=== PATIENT | male | born 1970 | race Caucasian/White ===

== ENCOUNTER 2021-11-14 11:28 | Emergency (ER) | payer SELFPAY ==
[~2021-11-14] VITALS: Ht 198.1 cm; Wt 97.5 kg
--- NOTE | 2021-11-14 11:48 | NUR ---
DR CARTER AT THE BEDSIDE
--- NOTE | 2021-11-14 11:50 | NUR ---
BIBS FOR C/O LT ARM SWELLING " I GOT BIT BY A SPIDER ". C/O LEFT ARM PAIN 04/29. WILL CONTINUE TO MONITOR THE PATIENT.
[2021-11-14] MEDS ORDERED: SULF1TAB48 PO (11:52)
[2021-11-14] MEDS ORDERED: CEPH500C2 PO (11:52)
[2021-11-14] MEDS ORDERED: SULFAMETH/TRIMETH 800/160 MG 1 UDTAB TABLET ONE (11:57)
[2021-11-14] MEDS ORDERED: CEPHALEXIN MONOHYDRATE 500 MG CAPSULE PO ONE ×2 (11:57→12:00)
[2021-11-14] MEDS ORDERED: SULFAMETH/TRIMETH 800/160 MG 1 UDTAB TABLET PO ONE (12:00)
[2021-11-14 12:02] VITALS: BP 132/68
--- NOTE | 2021-11-14 12:02 | NUR ---
Patient discharged to home in stable condition. Written and verbal after care instructions given. Patient verbalizes understanding of instruction.
[2021-11-22] MEDS ORDERED: CLIN300C12 PO (07:13)
[2021-11-22] MEDS ORDERED: LACT1CAP69 PO (07:14)
== END 2021-11-14 12:03 | disposition home or self-care (01) ==
LOC: ER 11:37
DX: L03.114 Cellulitis of left upper limb (principal); Z60.2 Problems related to living alone

== ENCOUNTER 2021-11-16 14:55 | Inpatient (IN) | payer SELFPAY ==
[~2021-11-16] VITALS: Ht 198.1 cm; Wt 73.1 kg
[~2021-11-16 14:55] MED LIST: CEPH500C2 PO; SULF1TAB48 PO
--- NOTE | 2021-11-16 14:55 | NUR ---
PT BIB SELF VISITING FROM [facility], C/O WORSENING SWELLING AND REDNESS TO RENALDO, FOLLOW-UP VISIT. PT STARTED START ATB 2 DAYS AGO WITH NO IMPROVEMENT. PT A/OX4 TOLERATING R/A WELL WITH NO SOB. CONNECTED PT TO POX AND MONITOR
[2021-11-16] MEDS ORDERED: IV NS 0.9% 1,000 ML BAG IV ONE (15:30)
[2021-11-16] MEDS ORDERED: VANCOMYCIN 1 GM in IV D5W 250 ML IV ONE (15:30)
[2021-11-16] MEDS ORDERED: PIPERACILLIN /TAZOBACTAM 3.375 G in IV D5W 50 ML IV ONE (15:30)
--- NOTE | 2021-11-16 15:55 | NUR ---
MOVE SHEET SUBMITTED AND CALLED FOR MS BED.
[2021-11-16 16:07] LABS: BASOPHILS # (AUTO) 0.1 K/uL (0.0-0.2); BASOPHILS % (AUTO) 0.3 % (0.0-2.0); EOSINOPHILS % (AUTO) 1.1 % (0.0-6.0); HEMATOCRIT 38 % (39-51); LYMPHOCYTES % (AUTO) 5.8 % (20.0-44.0); MEAN CORPUSCULAR HGB CONC 34 g/dl (31.0-36.0); MEAN CORPUSCULAR VOLUME 95 fL (80-96); MONOCYTES # (AUTO) 1.9 K/uL (0.1-1.30); NEUTROPHILS # (AUTO) 14.3 K/uL (1.8-8.9); NEUTROPHILS % (AUTO) 81.8 % (43.0-81.0); PLATELET COUNT (AUTO) 708 K/uL (150-450); RED BLOOD CELL COUNT(AUTO) 4.04 MIL/uL (4.5-6.0); WHITE BLOOD COUNT (AUTO) 17.5 K/uL (4.3-11.0)
[2021-11-16] MEDS ORDERED: PIPERACILLIN /TAZOBACTAM 3.375 G VIAL IV ONE (16:28)
[2021-11-16 16:40] LABS: ALBUMIN 2.5 g/dL (3.4-5.0); BILIRUBIN,DIRECT 0.1 mg/dL (0.0-0.2); BILIRUBIN,TOTAL 0.1 mg/dL (0.2-1.0); CALCIUM, SERUM 8.2 mg/dL (8.5-10.1); CREATININE 1.1 mg/dL (0.6-1.3); POTASSIUM 4.3 mmol/L (3.5-5.1); TOTAL PROTEIN, SERUM 7.2 g/dL (6.4-8.2)
--- NOTE | 2021-11-16 16:45 | NUR ---
GOT BED 319-1
--- NOTE | 2021-11-16 18:00 | NUR ---
RAC #20G S/L; PATENT AND INTACT
--- NOTE | 2021-11-16 18:36 | NUR ---
COVID ANTIGEN SWAB DONE AND SENT TO THE LAB
[2021-11-16] MEDS ORDERED: ACETAMINOPHEN 325 MG TABLET PO PRN (21:00)
[2021-11-16] MEDS ORDERED: MAGNESIUM HYDROXIDE 30 ML UDC PO PRN (21:00)
[2021-11-16] MEDS ORDERED: MAG HYDROX/AL HYDROX/SIMETH 30 ML UDC PO PRN (21:00)
[2021-11-16] MEDS ORDERED: ONDANSETRON HCL/PF 4 MG/2 ML VIAL IVP PRN (21:00)
[2021-11-16] MEDS ORDERED: IOHEXOL-300 100 ML VIAL IV ONE (21:23)
[2021-11-16] MEDS ORDERED: IV NS 0.9% 250 ML IV ONE (21:23)
--- NOTE | 2021-11-16 21:28 | NUR ---
PT TAKEN TO CT VIA [facility]
--- NOTE | 2021-11-16 22:12 | NUR ---
REPORT GIVEN TO DEV Garcia RN FOR TANISHA
[2021-11-16 22:25] VITALS: BP 136/83
--- NOTE | 2021-11-16 22:25 | NUR ---
MS RN ADMITTING NOTE PT TRANSPORTED BY [facility] TO [place] FROM ED AT THIS TIME. RECEIVED [id number] FROM CHARGE NURSE YNES. PT IS A/O X4. PT IS ABLE TO COMMUNICATE NEEDS. NO SOB NOTED, NO C/O PAIN AT THIS TIME. NO S/S OF ANY APPARENT DISTRESS NOTED. RESPIRATIONS EVEN AND UNLABORED, ACTIVE BOWEL SOUNDS AUSCULTATED THROUGHOUT, ABDOMEN IS NON DISTENDED. SKIN IS INTACT WITH REDNESS AND SWELLING ON THE LEFT ARM.. SKIN IS WARM TO TOUCH. CAPILLARY REFILL < 3SECS, PULSES PRESENT BILATERALLY, GOOD CIRCULATION NOTED. IV ACCESS NOTED IN RIGHT AC G# 20, INTACT, PATENT AND FLUSHING WELL. PT'S BELONGINGS ACCOUNTED FOR AND KEPT AT PT'S BEDSIDE PER PT REQUEST. ASPIRATION AND SAFETY PRECAUTIONS IN PLACE AND MAINTAINED AT ALL TIMES. BED IN LOWEST LOCKED POSITION, SIDE RAILS UP X2, TABLE AND CALL LIGHT WITHIN REACH. WILL CONTINUE PLAN OF CARE.
--- NOTE | 2021-11-16 22:28 | NUR ---
TRANSFERRED TO THIRD FLOOR
[2021-11-17] MEDS ORDERED: PIPERACILLIN /TAZOBACTAM 3.375 G VIAL IV ONE ×2 (00:52→05:31)
[2021-11-17] MEDS: MORPHINE SULFATE INJ 2 MG/ML DISP.SYRIN IV PRN ×2 (00:56→11:59)
--- NOTE | 2021-11-17 00:56 | NUR ---
PT C/O ACHING PAIN OF 7/10, PER PT REQUEST MORPHINE 4MG/2ML ADMINISTERED AT THSI TIME PER ORDER. WILL CONTINUE TO MONITOR
[2021-11-17] MEDS: ZOSYN IVPB 3.375 G in IV D5W 50ml IV SCH ×2 (01:03→06:18)
--- NOTE | 2021-11-17 02:48 | NUR ---
DR HYATT REPORTED THAT THE PT'S CT RESULT SHOWED LARGE ABSCESS, SHE DEMANDED THAT THE RESULT SHOULD BE REPORTED TO THE DOCTOR IN THE MORNING. ENDORSED TO THE AM RN
[2021-11-17] MEDS ORDERED: VANCOMYCIN 1.5 GM in IV D5W 500ml IV ONE (06:30)
--- NOTE | 2021-11-17 06:30 | NUR ---
MS RN CLOSING NOTE PT REMAINED STABLE THROUGHOUT SHIFT. WILL ENDORSE TO ONCOMING NURSE FOR TANISHA.
--- NOTE | 2021-11-17 07:10 | NUR ---
RN MS OPENING NOTES RECEIVED Pt RESTING IN BED. Pt IS ON ROOM AIR, AND TOLERATING WELL. Pt IS A/Ox4, NO COMPLAINTS OF PAIN MADE AT THIS TIME, NO SIGNS OF DISTRESS NOTICED. IV ACCESS ON R HAND, IT IS PATENT AND INTACT. SAFETY MEASURES ARE IN PLACE: BED IS LOCKED AND IN LOWEST POSITION. SIDE RAILS UP X 2, BED SIDE TABLE AND CALL LIGHT ARE WITHIN REACH. WILL CONTINUE TO MONITOR THROUGHOUT THE SHIFT.
[2021-11-17 08:00] VITALS: BP 126/76
[2021-11-17] MEDS: VANCOMYCIN 1.25 GM in IV D5W 250 ML IV SCH ×2 (08:15→19:00)
[2021-11-17] MEDS: PANTOPRAZOLE 40 MG TABLET.DR PO SCH (08:15)
[2021-11-17] MEDS: NICOTINE PATCH (7MG) 7 MG PATCH.TD24 TD SCH (08:34)
[2021-11-17 08:43] LABS: BASOPHILS # (AUTO) 0.1 K/uL (0.0-0.2); BASOPHILS % (AUTO) 0.5 % (0.0-2.0); EOSINOPHILS % (AUTO) 1.2 % (0.0-6.0); HEMATOCRIT 39 % (39-51); LYMPHOCYTES # (AUTO) 1.2 K/uL (0.8-4.8); MEAN CORPUSCULAR HGB CONC 34 g/dl (31.0-36.0); MEAN CORPUSCULAR VOLUME 94 fL (80-96); MONOCYTES # (AUTO) 1.7 K/uL (0.1-1.30); MONOCYTES % (AUTO) 9.9 % (2.0-12.0); NEUTROPHILS % (AUTO) 81.4 % (43.0-81.0); PLATELET COUNT (AUTO) 729 K/uL (150-450); RED BLOOD CELL COUNT(AUTO) 4.12 MIL/uL (4.5-6.0); WHITE BLOOD COUNT (AUTO) 17.1 K/uL (4.3-11.0)
[2021-11-17 09:25] LABS: CALCIUM, SERUM 8.6 mg/dL (8.5-10.1); MAGNESIUM 2.3 mg/dL (1.8-2.4); POTASSIUM 4.1 mmol/L (3.5-5.1)
[2021-11-17] MEDS ORDERED: PIPERACILLIN /TAZOBACTAM 3.375 G in IV D5W 50 ML IV SCH (12:00)
[2021-11-17] MEDS: CEFTRIAXONE 2 G in IV D5W 100 ML IV SCH (13:49)
[2021-11-17 16:00] VITALS: BP 127/74
[2021-11-17] MEDS ORDERED: MORPHINE SULFATE INJ 2 MG/ML DISP.SYRIN IV PRN (16:30)
--- NOTE | 2021-11-17 18:37 | NUR ---
MS RN CLOSING NOTES Pt IS IN BED RESTING. A/O x 4. BREATHING ON ROOM AIR AND TOLERATING WELL. NO COMPLAINTS OF PAIN MADE AT THIS TIME, NO SIGNS OF DISTRESS NOTICED. AWAITING IV INSERTION FOR A MIDLINE. SAFETY MEASURES ARE IN PLACE: bed is locked and in lowest position, side rails up x 2, call light and bed side table are within reach. will endorse to oncoming shift.
--- NOTE | 2021-11-17 19:49 | NUR ---
RN MS OPENING NOTES RECEIVED Pt RESTING IN BED. Pt IS ON ROOM AIR, AND TOLERATING WELL. Pt IS A/Ox4, NO COMPLAINTS OF PAIN MADE AT THIS TIME, NO SIGNS OF DISTRESS NOTICED. SAFETY MEASURES ARE IN PLACE: BED IS LOCKED AND IN LOWEST POSITION. SIDE RAILS UP X 2, BED SIDE TABLE AND CALL LIGHT ARE WITHIN REACH. WILL CONTINUE TO MONITOR THROUGHOUT THE SHIFT.
--- NOTE | 2021-11-17 19:52 | NUR ---
MS RN NOTES: IV MEDS IV MEDS NOT GIVEN DUE TO Pt NOT HAVING AN IV ACCESS AVAILABLE. AWAITING FOR AN IV MIDLINE .
[2021-11-17 20:00] VITALS: BP 122/71
[2021-11-18] MEDS ORDERED: MORPHINE SULFATE 8 MG/ML VIAL IM ONE (03:00)
[2021-11-18] MEDS ORDERED: MORPHINE SULFATE INJ 4 MG/ML DISP.SYRIN IM ONE (03:30)
--- NOTE | 2021-11-18 06:23 | NUR ---
MS RN CLOSING NOTES Pt IS IN BED SLEEPING AND IS EASILY AROUSABLE, A/O x 4. BREATHING ON ROOM AIR AND TOLERATING WELL. NO COMPLAINTS OF PAIN MADE AT THIS TIME, NO SIGNS OF DISTRESS NOTICED. AWAITING IV INSERTION FOR A MIDLINE. PAIN MEDS GIVEN AT 0300 MORPHINE 4mg IM. SAFETY MEASURES ARE IN PLACE: BED IS LOCKED AND IN LOWEST POSITION, SIDE RAILS UP X 2, CALL LIGHT AND BED SIDE TABLE ARE WITHIN REACH. WILL ENDORSE TO ONCOMING SHIFT.
--- NOTE | 2021-11-18 07:35 | NUR ---
MS RN OPENING NOTE Patient in bed, asleep. A/O x 4. On room air, breathing evenly and unlabored. No SOB or s/s of distress noted. Awaiting midline insertion. Safety measures in place: bed inlow, locked position; siderails up x 2; call light within reach. Will continue to monitor.
[2021-11-18 08:00] VITALS: BP 134/82
[2021-11-18 08:53] LABS: BASOPHILS % (AUTO) 0.1 % (0.0-2.0); EOSINOPHILS % (AUTO) 1.1 % (0.0-6.0); HEMATOCRIT 39 % (39-51); HEMOGLOBIN 13.4 g/dL (13.5-17.5); LYMPHOCYTES # (AUTO) 1.2 K/uL (0.8-4.8); LYMPHOCYTES % (AUTO) 6.4 % (20.0-44.0); MEAN CORPUSCULAR HGB CONC 34 g/dl (31.0-36.0); MEAN CORPUSCULAR VOLUME 94 fL (80-96); MONOCYTES # (AUTO) 1.4 K/uL (0.1-1.30); MONOCYTES % (AUTO) 7.7 % (2.0-12.0); NEUTROPHILS # (AUTO) 15.5 K/uL (1.8-8.9); NEUTROPHILS % (AUTO) 84.7 % (43.0-81.0); PLATELET COUNT (AUTO) 745 K/uL (150-450); RED BLOOD CELL COUNT(AUTO) 4.18 MIL/uL (4.5-6.0); WHITE BLOOD COUNT (AUTO) 18.3 K/uL (4.3-11.0)
[2021-11-18] MEDS: PANTOPRAZOLE 40 MG TABLET.DR PO SCH (09:00)
[2021-11-18] MEDS: NICOTINE PATCH (7MG) 7 MG PATCH.TD24 TD SCH (09:00)
[2021-11-18 09:03] LABS: CALCIUM, SERUM 8.6 mg/dL (8.5-10.1); CREATININE 1.1 mg/dL (0.6-1.3)
[2021-11-18] MEDS ORDERED: LIDOCAINE 2%-EPI 1:100,000 30 ML VIAL TP STA (13:13)
[2021-11-18] MEDS ORDERED: HYDROMORPHONE 1 MG/1 ML DISP.SYRIN IM ONE (13:30)
[2021-11-18] MEDS ORDERED: AMOX/CLAVULANATE 875 MG TABLET PO SCH (14:00)
--- NOTE | 2021-11-18 14:00 | NUR ---
RN NOTE Anusha BOX CAR BRACER performed Incision and Drainage at bedside. Patient tolerated procedure well.
[2021-11-18] MEDS: CEFTRIAXONE 2 G in IV D5W 100 ML IV SCH (14:48)
[2021-11-18 15:25] LABS: BAND % (MANUAL) 5 % (0.0-5.0); LYMPHOCYTES % (MANUAL) 5 % (16-48); MONOCYTES % (MANUAL) 7 % (0-11.0); NEUTROPHILS % (MANUAL) 83 (42-76)
[2021-11-18] MEDS: VANCOMYCIN 1.25 GM in IV D5W 250 ML IV SCH (15:46)
[2021-11-18 16:00] VITALS: BP 121/75
[2021-11-18] MEDS ORDERED: CLINDAMYCIN HCL 150 MG CAPSULE PO SCH (18:00)
[2021-11-18] MEDS: MORPHINE SULFATE INJ 2 MG/ML DISP.SYRIN IV PRN (18:06)
--- NOTE | 2021-11-18 18:08 | NUR ---
RN NOTE Patient complained of pain on Left upper arm 8/10, PRN Morphine IV given.
--- NOTE | 2021-11-18 18:53 | NUR ---
MS RN CLOSING NOTE Patient in bed, resting comfortably. A/O x 4, able to make needs known. Stable on room air. No SOB or s/s of distress noted. IV access on RAISA #20G, SL intact, patent, and flushes well. Dressing on Left upper arm reinforced. All needs met. Due meds given. Safety measures maintained: bed inlow, locked position; siderails up x 2; call light within reach. Will endorse to film processing shift supervisor nurse for TANISHA.
--- NOTE | 2021-11-18 19:39 | NUR ---
MS RN OPENING NOTES: RECEIVED REPORT AT PATIENT'S BEDSIDE. NO CHANGE FROM PREVIOUS CLOSING ASSESSMENT. PATIENT'S MENTATION IS TO BASELINE, IN NAD AND VSS. COMMUNICATIVE AND [id number] NEEDS EFFECTIVELY. DEMONSTRATES ABILITY TO USE CALL LIGHT. CALL LIGHT AND FREQUENTLY USED ITEMS WITHIN REACH.
[2021-11-18 20:00] VITALS: BP 125/75
[2021-11-19] MEDS: VANCOMYCIN 1.25 GM in IV D5W 250 ML IV SCH ×2 (02:30→15:00)
--- NOTE | 2021-11-19 06:31 | NUR ---
MS RN CLOSING NOTES: PATIENT RESTING, EYES CLOSED, EASILY AROUSED TO VOICE COMMAND, RR EVEN AND UNLABORED; IN NAD AND VSS AT THIS TIME. R UA IV #20 SL AT THIS TIME, FLUSHED AND PATENT. NO S/SX OF INFILTRATION OR INFECTION TO OR SURROUNDING INSERTION SITE. l UA ABD PAD TO LANCED SITE CDI AT THIS TIME. PATIENT DENIES PAIN.
[2021-11-19 06:59] LABS: BASOPHILS # (AUTO) 0.1 K/uL (0.0-0.2); BASOPHILS % (AUTO) 0.5 % (0.0-2.0); EOSINOPHILS % (AUTO) 1.9 % (0.0-6.0); HEMATOCRIT 40 % (39-51); HEMOGLOBIN 13.4 g/dL (13.5-17.5); LYMPHOCYTES # (AUTO) 1.2 K/uL (0.8-4.8); LYMPHOCYTES % (AUTO) 10.3 % (20.0-44.0); MEAN CORPUSCULAR HGB CONC 34 g/dl (31.0-36.0); MEAN CORPUSCULAR VOLUME 93 fL (80-96); MONOCYTES % (AUTO) 8.8 % (2.0-12.0); NEUTROPHILS # (AUTO) 9.3 K/uL (1.8-8.9); NEUTROPHILS % (AUTO) 78.5 % (43.0-81.0); PLATELET COUNT (AUTO) 829 K/uL (150-450); RED BLOOD CELL COUNT(AUTO) 4.28 MIL/uL (4.5-6.0); WHITE BLOOD COUNT (AUTO) 11.8 K/uL (4.3-11.0)
--- NOTE | 2021-11-19 07:20 | NUR ---
MS RN OPENING NOTES RECEIVED PATIENT ON BED ASLEEP BUT EASILY WOKEN UP. PATIENT IS ON ROOM AIR, AND TOLERATING WELL, WITH EQUAL AND UNLABORED BREATHING. WITH DRESSING ON THE LEFT ARM, COVERED WITH DRESSING, DRY AND INTACT. WITH IV ACCESS ON THE RIGHT UPPER ARM G20, PATENT AND INTACT. NO COMPLAIN OF PAIN OR DISCOMFORT AT THIS TIME. SAFETY MEASURES ARE IN PLACE: BED IS LOCKED AND IN LOWEST POSITION. SIDE RAILS UP X 2, BED SIDE TABLE AND CALL LIGHT ARE WITHIN REACH. WILL CONTINUE TO MONITOR PATIENT.
[2021-11-19] MEDS: PANTOPRAZOLE 40 MG TABLET.DR PO SCH (07:33)
[2021-11-19 07:37] LABS: CALCIUM, SERUM 9.2 mg/dL (8.5-10.1); POTASSIUM 3.8 mmol/L (3.5-5.1)
--- NOTE | 2021-11-19 07:45 | NUR ---
MS RN NOTE PATIENT SEEN BY DR. MASON. WILL CONTINUE TO MONITOR PATIENT.
[2021-11-19 08:22] VITALS: BP 148/94
[2021-11-19] MEDS: NICOTINE PATCH (7MG) 7 MG PATCH.TD24 TD SCH (08:45)
[2021-11-19] MEDS: CEFTRIAXONE 2 G in IV D5W 100 ML IV SCH (12:36)
[2021-11-19] MEDS: MORPHINE SULFATE INJ 4 MG/ML DISP.SYRIN IM PRN ×2 (14:27→18:13)
--- NOTE | 2021-11-19 15:00 | NUR ---
MS RN NOTE PATIENT WITH INFILTRATED IVF. UNABLE TO ESTABLISH IV ACCESS AT THIS TIME DESPITE SEVERAL ATTEMPTS. CHARGE NURSE, YASIR LEYVA MD AND PAVING MACHINE OPERATOR DEACON OF SURGERY AWARE. UNABLE TO GIVE ANTIBIOTIC VANCOMYCIN AT THIS TIME.
--- NOTE | 2021-11-19 15:05 | NUR ---
MS RN NOTE PATIENT SEEN BY ID DOCTOR AND SOLUTION CONSULTANT DEACON OF SURGERY. WOUND CARE DONE AND TOLERATED. PAIN MEDICATION GIVEN INDICATED. WILL CONTINUE TO MONITOR PATIENT.
[2021-11-19 16:09] VITALS: BP 112/67
--- NOTE | 2021-11-19 19:05 | NUR ---
MS RN CLOSING NOTES PATIENT ON BED ASLEEP BUT EASILY WOKEN UP. PATIENT IS ON ROOM AIR, AND TOLERATING WELL, WITH EQUAL AND UNLABORED BREATHING. WITH DRESSING ON THE LEFT ARM, COVERED WITH DRESSING, DRY AND INTACT. WITH IV ACCESS ON THE RIGHT FOREARM G22, PATENT AND INTACT. NO COMPLAIN OF PAIN OR DISCOMFORT AT THIS TIME. SAFETY MEASURES ARE IN PLACE: BED IS LOCKED AND IN LOWEST POSITION. SIDE RAILS UP X 2, BED SIDE TABLE AND CALL LIGHT ARE WITHIN REACH. WILL ENDORSE PATIENT FOR CONTINUITY OF CARE.
--- NOTE | 2021-11-19 19:10 | NUR ---
MS RN OPENING NOTE PATIENT RECEIVED AWAKE IN BED. A/OX4. NO S/S OF DISTRESS, BREATHING SYMMETRICAL. RFA IV PATENT. SAFETY MEASURES IN PLACE: BED AT LOWEST POSITION, RAILS UP X2, CALL RODRIGUES WITHIN REACH. WILL CONTINUE TO MONITOR PATIENT.
[2021-11-19 20:00] VITALS: BP 121/66
[2021-11-20] MEDS: VANCOMYCIN 1.25 GM in IV D5W 250 ML IV SCH ×2 (04:12→14:44)
--- NOTE | 2021-11-20 06:44 | NUR ---
MS RN CLOSING NOTE PATIENT IS ASLEEP IN BED. A/OX4. NO S/S OF DISTRESS, BREATHING SYMMETRICAL. RFA #20G IV PATENT. SAFETY MEASURES IN PLACE: BED AT LOWEST POSITION, RAILS UP X2, CALL RODRIGUES WITHIN REACH. WILL ENDORSE TO NEXT SHIFT FOR TANISHA.
--- NOTE | 2021-11-20 07:18 | NUR ---
MS RN OPENING NOTES RECEIVED PATIENT ON BED ASLEEP BUT EASILY WOKEN UP. PATIENT IS ON ROOM AIR, AND TOLERATING WELL, WITH EQUAL AND UNLABORED BREATHING. WITH DRESSING ON THE LEFT ARM, COVERED WITH DRESSING, DRY AND INTACT. WITH IV ACCESS ON THE RIGHT FOREARM G22, PATENT AND INTACT. NO COMPLAIN OF PAIN OR DISCOMFORT AT THIS TIME. SAFETY MEASURES ARE IN PLACE: BED IS LOCKED AND IN LOWEST POSITION. SIDE RAILS UP X 2, BED SIDE TABLE AND CALL LIGHT ARE WITHIN REACH. WILL CONTINUE TO MONITOR PATIENT.
[2021-11-20] MEDS: NICOTINE PATCH (7MG) 7 MG PATCH.TD24 TD SCH (08:12)
[2021-11-20] MEDS: PANTOPRAZOLE 40 MG TABLET.DR PO SCH (08:12)
[2021-11-20 08:28] VITALS: BP 135/82
[2021-11-20] MEDS: CEFTRIAXONE 2 G in IV D5W 100 ML IV SCH (12:28)
[2021-11-20 14:51] LABS: BASOPHILS % (AUTO) 0.6 % (0.0-2.0); EOSINOPHILS % (AUTO) 3.8 % (0.0-6.0); HEMATOCRIT 40 % (39-51); HEMOGLOBIN 13.3 g/dL (13.5-17.5); LYMPHOCYTES # (AUTO) 1.1 K/uL (0.8-4.8); MEAN CORPUSCULAR HGB CONC 33 g/dl (31.0-36.0); MEAN CORPUSCULAR VOLUME 94 fL (80-96); MONOCYTES # (AUTO) 0.7 K/uL (0.1-1.30); MONOCYTES % (AUTO) 10.3 % (2.0-12.0); NEUTROPHILS # (AUTO) 4.3 K/uL (1.8-8.9); NEUTROPHILS % (AUTO) 67.3 % (43.0-81.0); PLATELET COUNT (AUTO) 836 K/uL (150-450); RED BLOOD CELL COUNT(AUTO) 4.23 MIL/uL (4.5-6.0); WHITE BLOOD COUNT (AUTO) 6.4 K/uL (4.3-11.0)
[2021-11-20 15:00] LABS: CALCIUM, SERUM 8.4 mg/dL (8.5-10.1); POTASSIUM 4.3 mmol/L (3.5-5.1)
[2021-11-20] MEDS: MORPHINE SULFATE INJ 4 MG/ML DISP.SYRIN IM/IV PRN (15:38)
[2021-11-20 15:44] LABS: BAND % (MANUAL) 2 % (0.0-5.0); EOSINOPHILS % (MANUAL) 3 % (0-4); LYMPHOCYTES % (MANUAL) 18 % (16-48); MONOCYTES % (MANUAL) 10 % (0-11.0); NEUTROPHILS % (MANUAL) 67 (42-76)
[2021-11-20 16:07] VITALS: BP 134/73
--- NOTE | 2021-11-20 16:18 | NUR ---
MS RN NOTE WOUND CARE DONE ORDERED. PROCEDURE TOLERATED WELL.
--- NOTE | 2021-11-20 16:25 | NUR ---
MS RN NOTE SEEN BY DR. MASON. WILL CONTINUE TO MONITOR PATIENT.
--- NOTE | 2021-11-20 18:41 | NUR ---
MS RN CLOSING NOTES PATIENT ON BED ASLEEP BUT EASILY WOKEN UP. PATIENT IS ON ROOM AIR, AND TOLERATING WELL, WITH EQUAL AND UNLABORED BREATHING. WITH DRESSING ON THE LEFT ARM, COVERED WITH DRESSING, DRY AND INTACT. WITH IV ACCESS ON THE RIGHT FOREARM G22, PATENT AND INTACT. NO COMPLAIN OF PAIN OR DISCOMFORT AT THIS TIME. SAFETY MEASURES ARE IN PLACE: BED IS LOCKED AND IN LOWEST POSITION. SIDE RAILS UP X 2, BED SIDE TABLE AND CALL LIGHT ARE WITHIN REACH. WILL ENDORSE TO NEXT SHIFT FOR CONTINUITY OF CARE.
--- NOTE | 2021-11-20 19:30 | NUR ---
MS RN OPENING NOTE RECEIVED PATIENT IN BED WATCHING TELEVISION. A/OX4. ABLE TO MAKE NEEDS KNOWN. NO S/S OF APPARENT DISTRESS ON ROOM AIR. DENIES PAIN AT THIS TIME. R. FA INTACT AND PATENT-- NO FLUIDS RUNNING AT THIS TIME. NEEDS ATTENDED AT THE MOMENT. SAFETY IN PLACE. WILL CONTINUE WITH PLAN OF CARE FOR PATIENT.
[2021-11-20 20:00] VITALS: BP 121/67
[2021-11-21] MEDS: VANCOMYCIN 1.25 GM in IV D5W 250 ML IV SCH ×2 (03:08→18:43)
[2021-11-21 06:47] LABS: BASOPHILS # (AUTO) 0.1 K/uL (0.0-0.2); EOSINOPHILS % (AUTO) 3.9 % (0.0-6.0); HEMATOCRIT 39 % (39-51); HEMOGLOBIN 13.1 g/dL (13.5-17.5); LYMPHOCYTES # (AUTO) 1.7 K/uL (0.8-4.8); MEAN CORPUSCULAR HGB CONC 34 g/dl (31.0-36.0); MEAN CORPUSCULAR VOLUME 94 fL (80-96); MONOCYTES # (AUTO) 0.6 K/uL (0.1-1.30); MONOCYTES % (AUTO) 8.9 % (2.0-12.0); NEUTROPHILS # (AUTO) 4.4 K/uL (1.8-8.9); NEUTROPHILS % (AUTO) 61.2 % (43.0-81.0); PLATELET COUNT (AUTO) 888 K/uL (150-450); WHITE BLOOD COUNT (AUTO) 7.2 K/uL (4.3-11.0)
--- NOTE | 2021-11-21 06:59 | NUR ---
MS RN CLOSING NOTE PATIENT IN BED WITH EYES CLOSED. EASY TO AROUSE. A/OX4. NO S/S OF APPARENT DISTRESS. DENIES PAIN. NO FLUIDS RUNNING AT THIS TIME. ALL NEEDS ATTENDED. ALL SCHEDULED MEDICATIONS ADMINISTERED. SAFETY KEPT IN PLACE THE WHOLE SHIFT. WILL ENDORSE TO MORNING SHIFT RN FOR CONTINUITY OF CARE.
--- NOTE | 2021-11-21 07:34 | NUR ---
MS RN OPENING NOTE Patient in bed, awake. A/O x 4, able to make needs known. On room air, breathing evenly and unlabored. No SOB or s/s of distress noted. IV access on RFA #22G SL, intact and patent. Denies any pain and discomfort at this time. RENALDO dressing intact. Safety measures in place: bed in low, locked position; siderails up x 2, call light within reach. Will continue to monitor.
[2021-11-21 07:59] LABS: CALCIUM, SERUM 9.1 mg/dL (8.5-10.1); POTASSIUM 4.3 mmol/L (3.5-5.1)
[2021-11-21 08:00] VITALS: BP 122/84
[2021-11-21] MEDS: PANTOPRAZOLE 40 MG TABLET.DR PO SCH (08:23)
[2021-11-21] MEDS: NICOTINE PATCH (7MG) 7 MG PATCH.TD24 TD SCH (08:23)
[2021-11-21] MEDS: CEFTRIAXONE 2 G in IV D5W 100 ML IV SCH (12:46)
[2021-11-21] MEDS: MORPHINE SULFATE INJ 4 MG/ML DISP.SYRIN IM/IV PRN (14:47)
--- NOTE | 2021-11-21 16:00 | NUR ---
RN NOTE Lab still trying to draw blood for Vanco Trough. Waiting for results to give Vancomycin IV.
[2021-11-21 18:00] VITALS: BP 114/78
--- NOTE | 2021-11-21 18:20 | NUR ---
RN NOTE Blood drawn for Vanco trough. Waiting for results to give Vancomycin IV.
--- NOTE | 2021-11-21 18:50 | NUR ---
MS RN CLOSING NOTE Patient in bed, resting comfortably. A/O x 4, able to make needs known. Stable on room air. No SOB or s/s of distress noted. IV access on RFA #22G SL; intact, patent, and flushes well. Denies any pain and discomfort at this time. RENALDO dressing intact. All needs attended to. Due meds given. Safety measures maintained: bed in low, locked position; siderails up x 2, call light within reach. Will endorse to operations supervisor 2nd shift nurse for TANISHA.
--- NOTE | 2021-11-21 19:10 | NUR ---
MS/RN OPENING NOTE RECEIVED PATIENT RESTING IN BED. AWAKE, ALERT AND ORIENTED X 4. ABLE TO MAKE NEEDS KNOWN. DENIES PAIN AT THIS TIME. CONTINUES ON ROOM AIR WITH NO S/SX OF RESPIRATORY DISTRESS NOTED. IV ACCESS TO RIGHT FOREARM #22G INTACT AND PATENT. CONTINUES ON IV ABX. RENALDO WOUND DRESSING CLEAN, DRY AND INTACT. PATIENT IS AMBULATORY WITH STEADY GAIT. CALL LIGHT WITHIN REACH. ASPIRATION, FALL AND SAFETY PRECAUTIONS MAINTAINED. WILL CONTINUE TO MONITOR.
[2021-11-21 20:00] VITALS: BP 124/77
[2021-11-21] MEDS ORDERED: MUPIROCIN OINT 2% 22 GM TUBE NS SCH (21:00)
--- NOTE | 2021-11-21 21:00 | NUR ---
MS/RN NOTE PATIENTS IV INFILTRATED WITH SWELLING TO RIGHT UPPER EXTREMITY. IV VANCO STOPPED. REMOVED IV WITH TIP INTACT. PRESSURE DRESSING APPLIED. ICE PACKS APPLIED. PATIENT DENIES PAIN AT THIS TIME. REFUSING IV ACCESS AT THIS TIME - STATES HE'S A HARD STICK AND WILL LET US TRY LATER. PATIENT RESTING COMFORTABLY IN BED. CALL LIGHT WITHIN REACH. WILL CONTINUE TO MONITOR.
[2021-11-22 04:00] VITALS: BP 129/77
--- NOTE | 2021-11-22 05:54 | NUR ---
MS/RN NOTE ATTEMPTED MULTIPLE PIV INSERTIONS WITH NO SUCCESS X MULTIPLE NURSES. ORDER CURRENTLY IN PLACE FOR MIDLINE INSERTION.
[2021-11-22] MEDS ORDERED: VANCOMYCIN 1.25 GM in IV D5W 250 ML IV SCH (06:00)
--- NOTE | 2021-11-22 06:00 | NUR ---
MS/RN CLOSING NOTE PATIENT CURRENTLY RESTING IN BED. AWAKE, ALERT AND ORIENTED X 4. ABLE TO MAKE NEEDS KNOWN. DENIES PAIN AT THIS TIME. CONTINUES ON ROOM AIR WITH NO S/SX OF RESPIRATORY DISTRESS NOTED. NO IV ACCESS AT THIS TIME. MD AWARE WITH ORDER IN PLACE FOR MIDLINE INSERTION. CONTINUES ON IV ABX. RENALDO WOUND DRESSING CLEAN, DRY AND INTACT. PATIENT IS AMBULATORY WITH STEADY GAIT. CALL LIGHT WITHIN REACH. ASPIRATION, FALL AND SAFETY PRECAUTIONS MAINTAINED. WILL ENDORSE PLAN OF CARE TO ONCOMING SHIFT.
[2021-11-22 06:27] LABS: BASOPHILS # (AUTO) 0.1 K/uL (0.0-0.2); EOSINOPHILS % (AUTO) 2.6 % (0.0-6.0); HEMATOCRIT 38 % (39-51); HEMOGLOBIN 13.1 g/dL (13.5-17.5); LYMPHOCYTES # (AUTO) 1.9 K/uL (0.8-4.8); LYMPHOCYTES % (AUTO) 24.5 % (20.0-44.0); MEAN CORPUSCULAR HGB CONC 34 g/dl (31.0-36.0); MEAN CORPUSCULAR VOLUME 93 fL (80-96); MONOCYTES # (AUTO) 0.6 K/uL (0.1-1.30); MONOCYTES % (AUTO) 7.8 % (2.0-12.0); NEUTROPHILS % (AUTO) 64.1 % (43.0-81.0); RED BLOOD CELL COUNT(AUTO) 4.08 MIL/uL (4.5-6.0); WHITE BLOOD COUNT (AUTO) 7.8 K/uL (4.3-11.0)
[2021-11-22 06:55] LABS: CALCIUM, SERUM 9.2 mg/dL (8.5-10.1)
[2021-11-22] MEDS ORDERED: CLIN300C12 PO (07:13)
[2021-11-22] MEDS ORDERED: LACT1CAP69 PO (07:14)
--- NOTE | 2021-11-22 07:25 | NUR ---
MS RN OPENING NOTES RECEIVED PATIENT AWAKE IN BED IN NO ACUTE SIGNS OF DISTRESS. A/O X 4. ABLE TO MAKE NEEDS KNOWN, DENIES PAIN OR ANY DISCOMFORTS AT THIS TIME. ON ROOM AIR, TOLERATING WELL WITH NO SOB NOTED. NO IV ACCESS NOTED AT THIS TIME, PER LIP CUTTER AND SCORER RN TOBIAS, PT IS HARD STICK AND FOR MIDLINE INSERTION. DRESSING ON RENALDO WOUND CLEAN, DRY AND INTACT. CONTACT PRECAUTIONS MAINTAINED FOR MRSA OF WOUND. SAFETY MEASURES IN PLACED: BED IN LOWEST LOCKED POSITION WITH SR UP X2. CALL LIGHT WITHIN REACH. WILL CONTINUE TO MONITOR PT ACCORDINGLY.
[2021-11-22 08:00] VITALS: BP 121/70
[2021-11-22 08:09] LABS: PLATELET COUNT (AUTO) 946 K/uL (150-450)
[2021-11-22] MEDS: PANTOPRAZOLE 40 MG TABLET.DR PO SCH (08:16)
[2021-11-22] MEDS: NICOTINE PATCH (7MG) 7 MG PATCH.TD24 TD SCH (08:17)
[2021-11-22] MEDS: CEFTRIAXONE 2 G in IV D5W 100 ML IV SCH (12:42)
--- NOTE | 2021-11-22 15:15 | NUR ---
RN DISCHARGED NOTES PT DISCHARGED HOME IN STABLE CONDITION. PT IS A/O X4. ABLE TO MAKE NEEDS KNOWN. AMBULATORY WITH STEADY GAIT. V/S TAKEN, STABLE AND RECORDED. ON ROOM AIR, TOLERATING WELL WITH NO SOB NOTED. PT HAS NO IV ACCESS. SHOWED PT HOW TO DO WOUND DRESSING ON HIS RENALDO WOUND AND VERBALIZED UNDERSTANDING. HEALTH TEACHINGS/DISCHARGED INSTRUCTIONS GIVEN PT WITH VERBALIZATION OF UNDERSTANDING. EXIT FOLDER HANDED TO PT. PT LEFT UNIT AT 1500 AMBULATORY ACCOMPANIED BY TIA DINERO. AND CHARGE NURSE AWARE OF DISCHARGE.
== END 2021-11-22 15:00 | disposition home or self-care (01) | DRG 872 ==
LOC: ER 15:03 → MED 21:38
PROVIDERS: ADMIT Nurse Practitioner Family; ATTEND Family Medicine
PROC: 0J9F0ZZ Drainage of Left Upper Arm Subcutaneous Tissue and Fascia, Open Approach (ICD-10-PCS; principal; 2021-11-16)
DX: A41.9 Sepsis, unspecified organism (principal); L03.114 Cellulitis of left upper limb; L02.414 Cutaneous abscess of left upper limb; E44.0 Moderate protein-calorie malnutrition; E87.1 Hypo-osmolality and hyponatremia; Z20.822 Contact with and (suspected) exposure to COVID-19; D75.839 Thrombocytosis, unspecified; D63.8 Anemia in other chronic diseases classified elsewhere; Z90.49 Acquired absence of other specified parts of digestive tract; Z87.81 Personal history of (healed) traumatic fracture; F17.210 Nicotine dependence, cigarettes, uncomplicated; Z80.0 Family history of malignant neoplasm of digestive organs; Z80.3 Family history of malignant neoplasm of breast; B19.20 Unspecified viral hepatitis C without hepatic coma
CPT/HCPCS: 36415; 71045-TC; 73060-TC; 73201-TC; 80048-TC; 80076-TC; 80202-TC; 83605-TC; 83735-TC; 85025-TC; 85730-TC; 86704; 86803; 87040-TC; 87070-TC; 87081-TC; 87340; 87806; A6253; A6403; A6407; C9803; G0378; J0696; J1170; J2270; J2543; J3370; J3490; J7030; J7050; J7060; Q9967